=== PATIENT | female | born 1965 | race Caucasian/White ===

== ENCOUNTER 2022-08-01 12:04 | Emergency (ER) | payer MEDICARE, OTHER ==
[~2022-08-01] VITALS: Ht 157.5 cm; Wt 72.6 kg
--- NOTE | 2022-08-01 12:15 | NUR ---
BIB PRIVATE AMBULANCE FROM [facility] C/O BILATERAL EAR "GREEN OOZING" X 3 DAYS. PT DENIES PAIN. DENIES VERTIGO. DENIES HEARING LOSS. PT TRANSFERRED TO BED. CONNECTED TO MONITOR. VITAL SIGNS STABLE. AAOX4. BREATHING EVEN AND NON LABORED. SAFETY PRECAUTIONS IN PLACE. AWAITING MD ORDERS.
[2022-08-01] MEDS ORDERED: AMOX-430 PO (12:39)
--- NOTE | 2022-08-01 13:33 | NUR ---
[facility] ADDRESS: [address] [id number]
--- NOTE | 2022-08-01 13:35 | NUR ---
[facility] NUMBER:
--- NOTE | 2022-08-01 13:37 | NUR ---
CALLED [facility] FOR TRANSPORT ETA 1415 PER TYSHAWN.
--- NOTE | 2022-08-01 13:42 | NUR ---
REPORT GIVEN TO ORLANDO CARDONA Addendum: 08/01/22 at 1342 by XENIA AT [facility] [facility]
--- NOTE | 2022-08-01 14:04 | NUR ---
EMT'S AT BEDSIDE FOR TRANSPORT.
--- NOTE | 2022-08-01 14:04 | NUR ---
[facility] UNIT NUMBER [id number] AT BEDSIDE
--- NOTE | 2022-08-01 14:05 | NUR ---
Patient discharged to [facility] picked up by [facility] in stable condition. Written and verbal after care instructions given. Patient verbalizes understanding of instruction.
[2022-08-01 14:29] VITALS: BP 132/82
[2022-08-18] MEDS ORDERED: ARIP2TAB3 PO (12:04)
[2022-08-18] MEDS ORDERED: ACET325T53 PO (12:04)
[2022-08-18] MEDS ORDERED: DIVA500T2 PO (12:04)
[2022-08-18] MEDS ORDERED: Aspirin Ec PO (12:04)
[2022-08-18] MEDS ORDERED: BUSP5TAB3 PO (12:04)
== END 2022-08-01 14:29 | disposition home or self-care (01) ==
LOC: ER 12:39
DX: H65.93 Unspecified nonsuppurative otitis media, bilateral (principal); Z79.899 Other long term (current) drug therapy; Z79.82 Long term (current) use of aspirin

== ENCOUNTER 2022-08-15 19:59 | Inpatient (IN) | payer MEDICARE, OTHER ==
[~2022-08-15] VITALS: Ht 157.5 cm; Wt 68.5 kg
[~2022-08-15 19:59] MED LIST: AMOX-430 PO
--- NOTE | 2022-08-15 20:36 | NUR ---
BIBRA 60 FOR C/O ALTERED MENTAL STATUS. PT HAD AN INCEIDENT OF ROLLING FROM THE BED EARLIER. PT A/OX2. TOLERATING R/A WELL WITH NO RESP DISTRESS. SAFETY MEASURES IN PLACE. CONNECTED PT TO POX AND MONITOR
--- NOTE | 2022-08-15 21:28 | NUR ---
COVID ANTIGEN AND URINE SWAB COLLECTED AND SENT TO LAB
--- NOTE | 2022-08-15 21:29 | NUR ---
CARDIOTHORACIC SURGEON AT PT'S BEDSIDE
--- NOTE | 2022-08-15 21:46 | NUR ---
PT RETURNED TO ER BED [address]
[2022-08-15 22:05] LABS: BASOPHILS % (AUTO) 0.3 % (0.0-2.0); EOSINOPHILS % (AUTO) 2.3 % (0.0-6.0); HEMATOCRIT 44 % (33-45); HEMOGLOBIN 14.4 g/dL (11.5-14.8); LYMPHOCYTES # (AUTO) 1.7 K/uL (0.8-4.8); LYMPHOCYTES % (AUTO) 14.3 % (20.0-44.0); MEAN CORPUSCULAR HGB CONC 33 g/dl (31.0-36.0); MEAN CORPUSCULAR VOLUME 82 fL (82-100); MONOCYTES # (AUTO) 1.1 K/uL (0.1-1.30); MONOCYTES % (AUTO) 9.1 % (2.0-12.0); NEUTROPHILS # (AUTO) 8.8 K/uL (1.8-8.9); PLATELET COUNT (AUTO) 313 K/uL (150-450); RED BLOOD CELL COUNT(AUTO) 5.32 MIL/uL (4.0-5.2); WHITE BLOOD COUNT (AUTO) 11.8 K/uL (4.3-11.0)
[2022-08-15 22:09] LABS: BILIRUBIN,URINE NEGATIVE (NEGATIVE); COLOR,URINE YELLOW (YELLOW); LEUKOCYTE ESTERASE ,URINE NEGATIVE (NEGATIVE); NITRITE, URINE NEGATIVE (NEGATIVE); PROTEIN,URINE NEGATIVE (NEGATIVE); UGLUCOSE NEGATIVE (NEGATIVE); UROBILINOGEN,URINE 0.2 EU/dL (0.2)
[2022-08-15 22:16] LABS: ALANINE AMINOTRANSFERASE 14 U/L (12-78); ALBUMIN 3.5 g/dL (3.4-5.0); ALCOHOL, BLOOD < 3 mg/dL (0-0); ALKALINE PHOSPHATASE 89 U/L (46-116); ASPARTATE AMINOTRANSFERASE 16 U/L (15-37); BILIRUBIN,DIRECT 0.1 mg/dL (0.0-0.2); BILIRUBIN,TOTAL 0.2 mg/dL (0.2-1.0); CALCIUM, SERUM 9.1 mg/dL (8.5-10.1); CARBON DIOXIDE 24 mmol/L (21-32); CHLORIDE 106 mmol/L (98-107); CREATININE 0.8 mg/dL (0.6-1.3); GLUCOSE 92 mg/dL (74-106); POTASSIUM 3.5 mmol/L (3.5-5.1); SODIUM SERUM 139 mmol/L (136-145); TOTAL PROTEIN, SERUM 7.8 g/dL (6.4-8.2); UREA NITROGEN, BLOOD 11 mg/dL (7-18)
--- NOTE | 2022-08-15 22:27 | NUR ---
NEW ONSET WITNESSED SEIZURE NOTED. DR. MALIK DO AWARE. SEIZURE PRECAUTIONS IN PLACE.
[2022-08-15] MEDS ORDERED: LORAZEPAM INJ 2 MG/ML VIAL ONE ×2 (22:44→22:58)
[2022-08-15] MEDS ORDERED: LORAZEPAM INJ 2 MG/ML VIAL IV ONE ×2 (23:00)
--- NOTE | 2022-08-15 23:17 | NUR ---
REPORT GIVEN TO ASIF Saba RN FOR ALVIN
[2022-08-15 23:45] VITALS: BP 117/58
[2022-08-16] MEDS ORDERED: ACETAMINOPHEN 325 MG TABLET PO PRN
[2022-08-16] MEDS ORDERED: ONDANSETRON HCL/PF 4 MG/2 ML VIAL IVP PRN
[2022-08-16] MEDS ORDERED: LORAZEPAM INJ 2 MG/ML VIAL IV PRN
[2022-08-16] MEDS ORDERED: MORPHINE SULFATE INJ 2 MG/ML DISP.SYRIN IV PRN
[2022-08-16] MEDS ORDERED: hydrALAZINE HCL IV 20 MG VIAL IV PRN
--- NOTE | 2022-08-16 | NUR ---
CLINICAL ALLERGISTSHEETER OPERATOR NOTE RECEIVED REPORT FROM FREIGHT CAR LOADER [place] AND PATIENT WAS BROUGHT TO THE UNIT AT AROUND 2345 VIA STRETCHER, ACCOMPANIED BY 2 ER STAFFS. PER REPORT, PATIENT JUST HAD A SEIZURE IN THE ER DURING OBSERVATION AND ATIVAN WAS GIVEN. UPON ADMISSION IN THE UNIT, PATIENT IS AWAKE, ALERT AND ORIENTED X2 AND SLIGHT LETHARGIC (POST ICTAL STATE). AFEBRILE AND NOT IN ANY FORM OF ACUTE DISTRESS. BREATHING EVEN AND NON LABORED. NO C/O PAIN OR DISCOMFORT. LUNG SOUND CLEAR ON AUSCULTATION. EXPLAINED ADMISSION PROCESS W/C INCLUDES SKIN ASSESSMENT TO WHICH THE PATIENT AGREED. PATIENT WAS NOTED WITH SCAB ON R TEMPORAL AREA AND ON L THIGH, AND RASHES ON R FLANK. WITH IV ACCESS ON R HAND 20G- SL. VITALS TAKEN AND FOLLOWS: BP- 117/58, P- 68, T- 98.4, O2 SAT ON RA 100%, R- 18. BELONGINGS PROPERLY LABELLED AND DOCUMENTED. MEDICATED ORDERED. STARTED IV HYDRATION OF NS AT 75ML/HR. SEIZURE AND ASPIRATION PRECAUTION OBSERVED. PADDED SIDE RAILS FOR PROTECTION. SAFETY MEASURES IN PLACE. KEPT BED IN LOCKED AND IN LOW POSITION. SIDE RAILS UP X2. ADVISED TO USE THE CALL LIGHT WHEN IN NEED OF ASSISTANCE.
[2022-08-16] MEDS: IV NS 0.9% 1,000 ML IV SCH ×2 (00:40→13:20)
[2022-08-16] MEDS: ENOXAPARIN SODIUM 40 MG/0.4 ML DISP.SYRIN SQ SCH ×2 (00:55→21:09)
[2022-08-16 01:28] VITALS: BP 117/58
[2022-08-16 04:00] VITALS: BP 106/56
--- NOTE | 2022-08-16 06:22 | NUR ---
REAL ESTATE ASSESSOR CLOSING NOTE PATIENT IN BED, ASLEEP BUT EASY TO AROUSE AND RESPONDS TO VERBAL AND TACTILE STIMULI. AFEBRILE AND NOT IN ANY FORM OF ACUTE DISTRESS. BREATHING EVEN AND NON LABORED. NO C/O PAIN OR DISCOMFORT THROUGHOUT THE SHIFT. ON TELE MONITORING WITH CURRENT READING OF SR 73. WITH IV ACCESS ON R HAND 20G RUNNING WITH NS AT 75ML/HR. MEDICATED ORDERED. SEIZURE AND ASPIRATION PRECAUTION OBSERVED. SAFETY MEASURES IN PLACE. KEPT BED IN LOCKED AND IN LOW POSITION. SIDE RAILS UP X2. ADVISED TO USE THE CALL LIGHT WHEN IN NEED OF ASSISTANCE. ALL NURSING NEEDS ATTENDED. ENDORSED TO INCOMING SHIFT FOR CONTINUITY OF CARE.
[2022-08-16 06:41] LABS: BILIRUBIN,TOTAL 0.3 mg/dL (0.2-1.0); CALCIUM, SERUM 8.5 mg/dL (8.5-10.1); CREATININE 0.7 mg/dL (0.6-1.3); MAGNESIUM 2.2 mg/dL (1.8-2.4); PHOSPHORUS 3.3 mg/dL (2.5-4.9); POTASSIUM 3.6 mmol/L (3.5-5.1); TOTAL PROTEIN, SERUM 7.1 g/dL (6.4-8.2)
--- NOTE | 2022-08-16 07:20 | NUR ---
DEAN OF WOMEN NOTES PATIENT IN BED ALERT ORIENTED X 4, NO ACUTE DISTRESS NOTED, BREATHING UNLABORED. NO SOB NOTED. IV ACCESS PATENT AND INTACT. SAFETY MEASURES IN PLACE. SEIZURE PRECAUTION IN PLACE. CALL LIGHT WITHIN REACH. WILL CONTINUE TO MONITOR ACCORDINGLY
[2022-08-16 07:39] LABS: BASOPHILS % (AUTO) 0.4 % (0.0-2.0); EOSINOPHILS % (AUTO) 2.1 % (0.0-6.0); HEMATOCRIT 41 % (33-45); HEMOGLOBIN 13.2 g/dL (11.5-14.8); LYMPHOCYTES # (AUTO) 2.1 K/uL (0.8-4.8); MEAN CORPUSCULAR HGB CONC 32 g/dl (31.0-36.0); MEAN CORPUSCULAR VOLUME 84 fL (82-100); MONOCYTES % (AUTO) 9.7 % (2.0-12.0); NEUTROPHILS % (AUTO) 67.8 % (43.0-81.0); PLATELET COUNT (AUTO) 301 K/uL (150-450); RED BLOOD CELL COUNT(AUTO) 4.88 MIL/uL (4.0-5.2); WHITE BLOOD COUNT (AUTO) 10.3 K/uL (4.3-11.0)
[2022-08-16 08:00] VITALS: BP 115/63
[2022-08-16] MEDS ORDERED: AMLO-212 PO (08:02)
[2022-08-16] MEDS ORDERED: BUSP5TAB3 PO (08:02)
[2022-08-16] MEDS ORDERED: ARIP10TA57 PO (08:02)
[2022-08-16] MEDS ORDERED: ASPI-1420 PO (08:02)
[2022-08-16] MEDS: LEVETIRACETAM (500MG) 500 MG in IV NS 0.9% 100 ML IV SCH ×2 (08:55→21:07)
--- NOTE | 2022-08-16 09:14 | NUR ---
HEALTH SYSTEMS ANALYST NOTES CLARIFIED DIET ORDER WITH MANAGER FRAUD ISAEL ABBASI , PATIENT ALERT ORIENTED X3, ABLE TO FOLLOW COMMAND , NOT IN DISTRESS, ABLE TO SWALLOW WITH NO DIFFICULTY AND COUGHING, WITH NEW ORDER FOR CARDIAC CHOPPED DIET, MENTION TO MANAGER FRAUD ALSO REGARDING HER HOME MEDICATION NEEDS TO BE REVIEWED, ORDER CLARIFIED AND READ BACK WITH RANULFO ABBASI, NOTED AND CARRIED OUT.
[2022-08-16 12:00] VITALS: BP 102/75
[2022-08-16 16:00] VITALS: BP 113/49
--- NOTE | 2022-08-16 16:34 | NUR ---
INFORMATION ASSOC NOTES EEG DONE AT BESIDE, PATIENT TOLERATED WELL
[2022-08-16] MEDS: AMLODIPINE BESYLATE 5 MG TABLET PO SCH (17:00)
--- NOTE | 2022-08-16 17:30 | NUR ---
INFORMATICIST NOTES HELD AMLODIPINE DUE TO BLOOD PRESSURE 104/67
--- NOTE | 2022-08-16 18:53 | NUR ---
DEBURRING AND TOOLING MACHINE OPERATOR NOTES PATIENT IN BED ALERT ORIENTED X 4, NO ACUTE DISTRESS NOTED, BREATHING UNLABORED. NO SOB NOTED. IV ACCESS PATENT AND INTACT. NEEDS ATTENDED AND ANTICIPATED. SAFETY MEASURES IN PLACE. SEIZURE PRECAUTION IN PLACE. CALL LIGHT WITHIN REACH. WILL ENDORSE TO NIGHT NURSE FOR CONTINUITY OF CARE
--- NOTE | 2022-08-16 19:05 | NUR ---
HOME VISITOR OPENING NOTE PT IS SLEEPING IN BED, EASILY BEING AROUSED. SHE IS ALERT AND ORIENTED, AO X 3-4 BUT FORGETFUL SHE IS ON RA, TOLERATED WELL. NO S/S OF DISTRESS OR SOB. IV ACCESS IS AT HER R HAND, #20G, RUNNING NS @ 75 ML/HR. IV SITE IS PATENT AND INTACT. PT IS ON EXTERNAL CARE TECHNICIAN, ON THE MONITOR, HER HEART RHYTHM IS SB WITH HEART RATE OF 50S. SAFETY MEASURES ARE IN PLACE: PT IS ON SEIZURE PRECAUTION. BED IS PADDED, IN LOWEST AND LOCKED POSITION; SIDE RAILS UP X 3; BED ALARM IS SET. CALL LIGHT AND TABLE ARE WITHIN EASY REACH. WILL CONTINUE MONITORING THE PATIENT AND PROVIDE THE CARE PT NEEDS.
[2022-08-17] MEDS: IV NS 0.9% 1,000 ML IV SCH ×2 (02:39→15:25)
--- NOTE | 2022-08-17 03:54 | NUR ---
RADIOLOGIC TECHNICIAN NOTE PT'S HEART RATE IS RUNNING AT 50S AND UPPER 40S. CHECKED THE PATIENT, AND TOOK HER VITAL SIGNS. BP IS 147/71; HR IS 52, O2 SAT IS 100% WITH RA. PT IS ASYMPTOMATIC.
[2022-08-17 06:34] LABS: BASOPHILS % (AUTO) 0.5 % (0.0-2.0); EOSINOPHILS % (AUTO) 3.1 % (0.0-6.0); HEMATOCRIT 40 % (33-45); HEMOGLOBIN 12.8 g/dL (11.5-14.8); LYMPHOCYTES # (AUTO) 2.5 K/uL (0.8-4.8); LYMPHOCYTES % (AUTO) 27.2 % (20.0-44.0); MEAN CORPUSCULAR HGB CONC 32 g/dl (31.0-36.0); MEAN CORPUSCULAR VOLUME 84 fL (82-100); MONOCYTES % (AUTO) 10.9 % (2.0-12.0); NEUTROPHILS # (AUTO) 5.3 K/uL (1.8-8.9); NEUTROPHILS % (AUTO) 58.3 % (43.0-81.0); PLATELET COUNT (AUTO) 270 K/uL (150-450); RED BLOOD CELL COUNT(AUTO) 4.74 MIL/uL (4.0-5.2); WHITE BLOOD COUNT (AUTO) 9.1 K/uL (4.3-11.0)
--- NOTE | 2022-08-17 06:49 | NUR ---
ELEMENTARY SCIENCE TEACHER CLOSING NOTE PT IS SLEEPING IN BED, EASILY BEING AROUSED. SHE IS ALERT AND ORIENTED, AO X 3, BUT FORGETFUL. SHE IS ON RA, TOLERATED WELL. NO S/S OF DISTRESS OR SOB. IV ACCESS IS AT HER R FA, #20G, RUNNING NS @ 75 ML/HR. IV SITE IS PATENT AND INTACT. PT IS ON EXTERNAL MASON TENDER RESTORATION LABOR, ON THE MONITOR, HER HEART RHYTHM IS SB WITH HEART RATE OF 50S. NO SEIZURES DURING THE SHIFT. SAFETY MEASURES ARE IN PLACE: PT IS ON SEIZURE PRECAUTION. BED IS PADDED, IN LOWEST AND LOCKED POSITION; SIDE RAILS UP X 3; BED ALARM IS SET. CALL LIGHT AND TABLE ARE WITHIN EASY REACH. WILL ENDORSE NEXT SHIFT NURSE FOR CONTINUING PT CARE.
[2022-08-17 07:04] LABS: CALCIUM, SERUM 8.3 mg/dL (8.5-10.1); CREATININE 0.7 mg/dL (0.6-1.3)
--- NOTE | 2022-08-17 07:30 | NUR ---
COMMERCIAL LITIGATION ATTORNEY NOTES PT IN BED, ASLEEP, EASY TO AROUSE, ALERT AND ORIENTED, CALM AND COOPERATIVE AT THIS TIME, NO COMPLAINT OF PAIN OR ANY DISCOMFORT, CALL LIGHT WITHIN REACH, KEPT COMFORTABLE IN BED.
[2022-08-17 08:00] VITALS: BP 104/59
[2022-08-17] MEDS: AMLODIPINE BESYLATE 5 MG TABLET PO SCH ×2 (08:24→16:57)
[2022-08-17] MEDS: ASPIRIN EC 81 MG TABLET.DR PO SCH (08:29)
[2022-08-17] MEDS: LEVETIRACETAM (500MG) 500 MG in IV NS 0.9% 100 ML IV SCH (08:29)
[2022-08-17] MEDS: busPIRone 5 MG TABLET PO SCH (08:30)
[2022-08-17] MEDS ORDERED: VALPROATE 1,000 MG in IV D5W 100 ML IV SCH ×2 (09:00→15:00)
[2022-08-17 12:00] VITALS: BP 108/62
[2022-08-17] MEDS: ARIPIPRAZOLE 2 MG TABLET PO SCH (12:14)
[2022-08-17 16:00] VITALS: BP 112/61
--- NOTE | 2022-08-17 18:08 | NUR ---
RN MS NOTES PT IN BED, AWAKE, ALERT AND ORIENTED, WATCHING TV, ATE DINNER, SEEN BY DR. ABBASI TODAY, PLAN OF CARE DISCUSSED WITH PT, VERBALIZED UNDERSTANDING, IV FLUIDS INFUSING WELL, CALL LIGHT KEPT WITHIN REACH.
--- NOTE | 2022-08-17 19:40 | NUR ---
MS RN OPENING NOTES RECEIVED PATIENT IN BED SLEEPING, EASILY AWAKEN WHEN CALLED BY NAME. A/OX3-4 ABLE TO MAKE NEEDS KNOWN WITH EPISODES OF FORGETFULNESS. PATIENT WITH IV SITE ON RIGHT FOREARM G#20 INFUSING NS 0.9% @ 75ML/HR. ON ROOM AIR TOLERATING WELL. NO SOB, NOT IN DISTRESS NOTED. COMFORTABLE AND NO PAIN AT THIS TIME PER PATIENT. SAFETY MEASURES IN PLACED; BED LOCKED AND IN LOWEST POSITION; CALL LIGHT AND BEDSIDE TABLE WITHIN PATIENTS REACH.
[2022-08-17 20:00] VITALS: BP 113/51
[2022-08-17] MEDS: LEVETIRACETAM (250 MG) 250 MG TABLET PO SCH (21:16)
[2022-08-17] MEDS: ENOXAPARIN SODIUM 40 MG/0.4 ML DISP.SYRIN SQ SCH (21:18)
[2022-08-17] MEDS: VALPROATE 500 MG in IV D5W 100 ML IV SCH (21:21)
[2022-08-18] MEDS: IV NS 0.9% 1,000 ML IV SCH (05:28)
--- NOTE | 2022-08-18 07:06 | NUR ---
RN CLOSING NOTES PATIENT IN BED SLEEPING, EASILY AWAKEN WHEN CALLED BY NAME. A/OX3-4 ABLE TO MAKE NEEDS KNOWN WITH EPISODES OF FORGETFULNESS. PATIENT WITH IV SITE ON RIGHT FOREARM G#20 INFUSING NS 0.9% @ 75ML/HR. ON ROOM AIR TOLERATING WELL. NO SOB, NOT IN DISTRESS NOTED. COMFORTABLE AND NO PAIN AT THIS TIME PER PATIENT. ALL DUE MEDICATIONS ARE GIVEN. ALL NEEDS ARE MET. SAFETY MEASURES IN PLACED; BED LOCKED AND IN LOWEST POSITION; CALL LIGHT AND BEDSIDE TABLE WITHIN PATIENTS REACH.WILL ENDORSE TO NEXT SHIFT FOR CONTINUITY OF CARE.
--- NOTE | 2022-08-18 07:15 | NUR ---
RN OPENING NOTE RECEIVED PATIENT IN BED SLEEPING, EASILY AWAKEN WHEN CALLED BY NAME. A/OX3-4 ABLE TO MAKE NEEDS KNOWN. IV ACCESS RIGHT FOREARM G#20 INFUSING NS 0.9% @ 75ML/HR. ON ROOM AIR TOLERATING WELL. NO SOB, NO DISTRESS NOTED, NO C/O PAIN. SAFETY MEASURES IN PLACED; BED LOCKED AND IN LOWEST POSITION; CALL LIGHT AND BEDSIDE TABLE WITHIN PATIENTS REACH.
[2022-08-18 08:00] VITALS: BP 124/74
[2022-08-18] MEDS: ARIPIPRAZOLE 2 MG TABLET PO SCH (09:09)
[2022-08-18] MEDS: LEVETIRACETAM (250 MG) 250 MG TABLET PO SCH (09:10)
[2022-08-18] MEDS: busPIRone 5 MG TABLET PO SCH (09:10)
[2022-08-18 09:11] VITALS: BP 124/74
[2022-08-18] MEDS: AMLODIPINE BESYLATE 5 MG TABLET PO SCH (09:11)
[2022-08-18] MEDS: ASPIRIN EC 81 MG TABLET.DR PO SCH (09:11)
[2022-08-18] MEDS: VALPROATE 500 MG in IV D5W 100 ML IV SCH (09:13)
[2022-08-18] MEDS ORDERED: Aspirin Ec PO (12:04)
[2022-08-18] MEDS ORDERED: ACET325T53 PO (12:04)
[2022-08-18] MEDS ORDERED: ARIP2TAB3 PO (12:04)
[2022-08-18] MEDS ORDERED: DIVA500T2 PO (12:04)
[2022-08-18] MEDS ORDERED: BUSP5TAB3 PO (12:04)
--- NOTE | 2022-08-18 13:54 | NUR ---
PATIENT D/C TO ASSISTED [facility]IV[facility]AC[facility] AT 1400. CONDITION STABLE, AUDITING CLERK VIA GURNEY BY PARAMEDICS, D/C INSTRUCTION PROVIDED, VERBALIZED UNDERSTANDING.
== END 2022-08-18 14:30 | DRG 100 ==
LOC: ER 20:13 → TELE 23:17 → MED 08-17 10:22
PROVIDERS: ADMIT Internal Medicine; ATTEND Nurse Practitioner Acute Care
DX: R56.9 Unspecified convulsions (principal); G92.8 Other toxic encephalopathy; E44.1 Mild protein-calorie malnutrition; I10 Essential (primary) hypertension; Z20.822 Contact with and (suspected) exposure to COVID-19; W06.XXXA Fall from bed, initial encounter; Y92.092 Bedroom in other non-institutional residence as the place of occurrence of the external cause; S09.90XA Unspecified injury of head, initial encounter; F12.90 Cannabis use, unspecified, uncomplicated; Z79.82 Long term (current) use of aspirin; Z79.899 Other long term (current) drug therapy; F20.9 Schizophrenia, unspecified; F31.9 Bipolar disorder, unspecified; D72.829 Elevated white blood cell count, unspecified; E88.09 Other disorders of plasma-protein metabolism, not elsewhere classified; F17.210 Nicotine dependence, cigarettes, uncomplicated
CPT/HCPCS: 36415; 70450-TC; 71045-TC; 80048-TC; 80053-TC; 80076-TC; 82962-TC; 83605-TC; 83735-TC; 84100-TC; 84484-TC; 85025-TC; 85730-TC; 87081-TC; 95819-TC; 97112-TC; 97116-TC; 97530-TC; A4223; C9803; G0378; G0480; J1650; J1953; J2060; J3490; J7030; J7060

== ENCOUNTER 2022-09-27 04:22 | Emergency (ER) | payer MEDICARE, OTHER ==
[~2022-09-27] VITALS: Ht 157.5 cm; Wt 68.9 kg
[~2022-09-27 04:22] MED LIST changes: +ACET325T53 PO; +AMLO-212 PO; -AMOX-430 PO; +ARIP2TAB3 PO; +Aspirin Ec PO; +BUSP5TAB3 PO; +DIVA500T2 PO
--- NOTE | 2022-09-27 04:49 | NUR ---
LAC #20G S/L BLOOD COLLECTED AND SENT TO LAB
[2022-09-27] MEDS ORDERED: DIVALPROEX SODIUM 500 MG TABLET.DR PO ONE ×2 (04:53→05:00)
[2022-09-27] MEDS ORDERED: DEXTROSE 50%-WATER 50 ML DISP.SYRIN IVP ONE (05:00)
--- NOTE | 2022-09-27 05:00 | NUR ---
PT IS HIGH FUNCTIONING AUTISTIC. ENCOURAGE PT TO GIVE URINE SAMPLE BUT CANNOT PEE AT THE MOMENT. ASKED PATIENT IF I CAN DO AN IN AND OUT CATHETERIZATION, PT STRONGLY REFUSED. MADE AWARE
--- NOTE | 2022-09-27 05:02 | NUR ---
D50%W 50 ML, GAVE 25 ML, END TIME 0520H
[2022-09-27 05:04] LABS: BASOPHILS # (AUTO) 0.1 K/uL (0.0-0.2); BASOPHILS % (AUTO) 0.7 % (0.0-2.0); EOSINOPHILS % (AUTO) 4.6 % (0.0-6.0); HEMATOCRIT 43 % (33-45); HEMOGLOBIN 14.2 g/dL (11.5-14.8); LYMPHOCYTES # (AUTO) 2.2 K/uL (0.8-4.8); LYMPHOCYTES % (AUTO) 30.2 % (20.0-44.0); MEAN CORPUSCULAR HGB CONC 33 g/dl (31.0-36.0); MEAN CORPUSCULAR VOLUME 84 fL (82-100); MONOCYTES # (AUTO) 0.6 K/uL (0.1-1.30); MONOCYTES % (AUTO) 8.7 % (2.0-12.0); NEUTROPHILS % (AUTO) 55.8 % (43.0-81.0); PLATELET COUNT (AUTO) 244 K/uL (150-450); RED BLOOD CELL COUNT(AUTO) 5.16 MIL/uL (4.0-5.2); WHITE BLOOD COUNT (AUTO) 7.2 K/uL (4.3-11.0)
[2022-09-27] MEDS ORDERED: DEXTROSE 50%-WATER 50 ML DISP.SYRIN ONE (05:10)
[2022-09-27 05:22] LABS: ALANINE AMINOTRANSFERASE 19 U/L (12-78); ALBUMIN 3.5 g/dL (3.4-5.0); ALCOHOL, BLOOD < 3 mg/dL (0-0); ALKALINE PHOSPHATASE 86 U/L (46-116); ASPARTATE AMINOTRANSFERASE 16 U/L (15-37); BILIRUBIN,TOTAL 0.2 mg/dL (0.2-1.0); CALCIUM, SERUM 9.1 mg/dL (8.5-10.1); CARBON DIOXIDE 20 mmol/L (21-32); CHLORIDE 107 mmol/L (98-107); GLUCOSE 76 mg/dL (74-106); POTASSIUM 4.1 mmol/L (3.5-5.1); SODIUM SERUM 140 mmol/L (136-145); TOTAL PROTEIN, SERUM 7.5 g/dL (6.4-8.2); UREA NITROGEN, BLOOD 18 mg/dL (7-18)
--- NOTE | 2022-09-27 05:42 | NUR ---
BEDPAN PLACED UNDERNEATH PT. ENCOURAGE TO PEE TO PRODUCE URINE.
--- NOTE | 2022-09-27 06:27 | NUR ---
URINE SPECIMEN SENT TO LAB
--- NOTE | 2022-09-27 07:14 | NUR ---
REPORT GIVEN TO DULCE SHERMAN
[2022-09-27 07:19] LABS: BILIRUBIN,URINE NEGATIVE (NEGATIVE); COLOR,URINE YELLOW (YELLOW); LEUKOCYTE ESTERASE ,URINE NEGATIVE (NEGATIVE); NITRITE, URINE NEGATIVE (NEGATIVE); PH,URINE 5.5 (5.0-8.0); PROTEIN,URINE NEGATIVE (NEGATIVE); UGLUCOSE NEGATIVE (NEGATIVE); UROBILINOGEN,URINE 0.2 EU/dL (0.2)
--- NOTE | 2022-09-27 08:23 | NUR ---
CALLED [facility] FOR TRANSPORT ETA 15 MINS.
--- NOTE | 2022-09-27 08:30 | NUR ---
Patient discharged to home in stable condition. Written and verbal after care instructions given. Patient verbalizes understanding of instruction.
[2022-09-27 09:54] VITALS: BP 108/60
== END 2022-09-27 09:55 ==
LOC: ER 04:27
DX: G40.909 Epilepsy, unspecified, not intractable, without status epilepticus (principal); E16.2 Hypoglycemia, unspecified; I10 Essential (primary) hypertension; F32.A Depression, unspecified; F20.9 Schizophrenia, unspecified; F41.9 Anxiety disorder, unspecified; F17.200 Nicotine dependence, unspecified, uncomplicated; Z79.899 Other long term (current) drug therapy
CPT/HCPCS: 99285; 96365; 93005; 71045; 85025; 80048; 80076; 81003; 36415; 85730; 82962 ×2; 80320; 80307; A4223; G0480

== ENCOUNTER 2022-11-06 10:07 | Emergency (ER) | payer MEDICARE, OTHER ==
[~2022-11-06] VITALS: Ht 165.1 cm; Wt 57.2 kg
--- NOTE | 2022-11-06 10:10 | NUR ---
TO ER BED 13. BIB RA 60 FROM SNF AFTER HAVING A SEIZURE EPISODE. PT HAS A HEMATOMA ON THE BACK OF HER HEAD NO ORAL TRAUMA NOTED. BLOOD GLUCOSE 136 PER EMS, PT IS NOT ON BLOOD THINNERS. ATTACHED TO MONITOR. WARM BLNAKET PROVIDED FOR COMFORT. FIOR SHAY ORDERS.
--- NOTE | 2022-11-06 10:24 | NUR ---
IV ESTABLISHED R WRIST 20G. LABD DRAWN AND SENT.
[2022-11-06] MEDS ORDERED: IV NS 0.9% 1,000 ML BAG IV ONE (10:30)
[2022-11-06 10:45] LABS: CALCIUM, SERUM 9.3 mg/dL (8.5-10.1); CARBON DIOXIDE 22 mmol/L (21-32); CHLORIDE 106 mmol/L (98-107); GLUCOSE 110 mg/dL (74-106); POTASSIUM 4.1 mmol/L (3.5-5.1); SODIUM SERUM 140 mmol/L (136-145); UREA NITROGEN, BLOOD 15 mg/dL (7-18)
[2022-11-06 10:51] LABS: ALANINE AMINOTRANSFERASE 17 U/L (12-78); ALBUMIN 3.7 g/dL (3.4-5.0); ALCOHOL, BLOOD < 3 mg/dL (0-0); ALKALINE PHOSPHATASE 107 U/L (46-116); ASPARTATE AMINOTRANSFERASE 18 U/L (15-37); BILIRUBIN,DIRECT 0.1 mg/dL (0.0-0.2); BILIRUBIN,TOTAL 0.2 mg/dL (0.2-1.0); TOTAL PROTEIN, SERUM 8.2 g/dL (6.4-8.2)
--- NOTE | 2022-11-06 10:52 | NUR ---
PT REFUSED HEAD CT AND CHEST X-RAY
--- NOTE | 2022-11-06 10:54 | NUR ---
PT TAKEN TO CT VIA SMITH
[2022-11-06] MEDS ORDERED: NYST60PO TP (11:10)
[2022-11-06] MEDS ORDERED: BUSP10TA35 PO (11:10)
[2022-11-06] MEDS ORDERED: VALS80TA2 PO (11:10)
[2022-11-06] MEDS ORDERED: ARIP10TA9 PO (11:10)
[2022-11-06 11:34] LABS: BASOPHILS % (AUTO) 0.5 % (0.0-2.0); EOSINOPHILS % (AUTO) 0.8 % (0.0-6.0); HEMATOCRIT 47 % (33-45); HEMOGLOBIN 15.6 g/dL (11.5-14.8); LYMPHOCYTES # (AUTO) 1.8 K/uL (0.8-4.8); LYMPHOCYTES % (AUTO) 19.5 % (20.0-44.0); MEAN CORPUSCULAR HGB CONC 33 g/dl (31.0-36.0); MEAN CORPUSCULAR VOLUME 85 fL (82-100); MONOCYTES # (AUTO) 0.5 K/uL (0.1-1.30); MONOCYTES % (AUTO) 5.8 % (2.0-12.0); NEUTROPHILS # (AUTO) 6.9 K/uL (1.8-8.9); NEUTROPHILS % (AUTO) 73.4 % (43.0-81.0); PLATELET COUNT (AUTO) 292 K/uL (150-450); RED BLOOD CELL COUNT(AUTO) 5.55 MIL/uL (4.0-5.2); WHITE BLOOD COUNT (AUTO) 9.4 K/uL (4.3-11.0)
--- NOTE | 2022-11-06 12:42 | NUR ---
URINE COLLECTED AND SENT TO LAB
[2022-11-06] MEDS ORDERED: LEVETIRACETAM (500MG) 1,000 MG in IV NS 0.9% 100 ML IV SCH (13:00)
[2022-11-06 13:32] LABS: BILIRUBIN,URINE NEGATIVE (NEGATIVE); COLOR,URINE YELLOW (YELLOW); LEUKOCYTE ESTERASE ,URINE NEGATIVE (NEGATIVE); NITRITE, URINE NEGATIVE (NEGATIVE); PROTEIN,URINE NEGATIVE (NEGATIVE); UGLUCOSE NEGATIVE (NEGATIVE); UROBILINOGEN,URINE 0.2 EU/dL (0.2)
[2022-11-06] MEDS ORDERED: LEVE500T9 PO (14:58)
--- NOTE | 2022-11-06 15:08 | NUR ---
SET UP TRANSPORTATION, [facility] WILL BE HERE WITHIN 20-30 MINUTES
--- NOTE | 2022-11-06 15:12 | NUR ---
REPORT GIVEN TO DMITRY SEVILLA [facility] FOR [facility]
[2022-11-06 15:54] VITALS: BP 129/78
--- NOTE | 2022-11-06 15:54 | NUR ---
pateint picked up by private ambulance going back to snf in no distress. IV removed. Catheter intact and site benign. Pressure and 4x4 applied to site. No bleeding noted.
== END 2022-11-06 15:54 ==
LOC: ER 10:10
DX: G40.909 Epilepsy, unspecified, not intractable, without status epilepticus (principal); I10 Essential (primary) hypertension; F32.A Depression, unspecified; F20.9 Schizophrenia, unspecified; F41.9 Anxiety disorder, unspecified; F17.200 Nicotine dependence, unspecified, uncomplicated; Z79.899 Other long term (current) drug therapy
CPT/HCPCS: 99285; 96365; 96361; 93005; 71045; 70450; 85025; 80048; 80076; 81003; 36415; 82962; 80320; 80307; J7030 ×2; J1953; G0480

== ENCOUNTER 2024-02-09 22:33 | Inpatient (IN) | payer MEDICARE, OTHER ==
[~2024-02-09] VITALS: Ht 162.6 cm; Wt 58.1 kg
[~2024-02-09 22:33] MED LIST changes: -ACET325T53 PO; +ARIP10TA9 PO; -ARIP2TAB3 PO; -Aspirin Ec PO; +BUSP10TA35 PO; -BUSP5TAB3 PO; -DIVA500T2 PO; +LEVE500T9 PO; +NYST60PO TP; +VALS80TA2 PO
--- NOTE | 2024-02-09 23:27 | NUR ---
urine sent to lab
--- NOTE | 2024-02-09 23:28 | NUR ---
[id number] FROM [facility] CC FOUND PASSED OUT WITH PINPOINT PUPILS IN THE BACK OF THE FACILTY RR OF 6 ON ARRIVAL EMS GIVEN 4NARCAN IM AND 2 IV OCCUPATIONAL THERAPY ASST
[2024-02-10] VITALS (21 sets, daily range): BP systolic 116–167; BP diastolic 65–89; TEMP 98; O2SAT 91–95
[2024-02-10 00:16] LABS: APPEARANCE,URINE CLEAR (CLEAR); BILIRUBIN,URINE NEGATIVE (NEGATIVE); BLOOD, URINE NEGATIVE Ery/uL (NEGATIVE); COLOR,URINE YELLOW (YELLOW); KETONES,URINE NEGATIVE (NEGATIVE); LEUKOCYTE ESTERASE ,URINE NEGATIVE (NEGATIVE); NITRITE, URINE NEGATIVE (NEGATIVE); PH,URINE 5.5 (5.0-8.0); PROTEIN,URINE NEGATIVE (NEGATIVE); UGLUCOSE 3+ mg/dL (NEGATIVE); UROBILINOGEN,URINE 0.2 EU/dL (0.2)
[2024-02-10 00:18] LABS: ADD URINE CULTURE NO; BACTERIA,URINE Rare /HPF (None Seen); RBC,URINE 0-2 /HPF (0-2); SQUAMOUS EPITHELIAL CELL,UR Rare /HPF (None Seen); WBC,URINE 0-2 /HPF (0-3)
[2024-02-10 00:23] LABS: BASOPHILS # (AUTO) 0.1 K/uL (0.0-0.2); BASOPHILS % (AUTO) 0.3 % (0.0-2.0); EOSINOPHILS % (AUTO) 0.2 % (0.0-6.0); HEMATOCRIT 45 % (33-45); LYMPHOCYTES % (AUTO) 4.5 % (20.0-44.0); MEAN CORPUSCULAR HEMOGLOBIN 30 PG (26.0-33.0); MEAN CORPUSCULAR HGB CONC 33 g/dl (31.0-36.0); MEAN CORPUSCULAR VOLUME 90 fL (82-100); MONOCYTES # (AUTO) 1.3 K/uL (0.1-1.30); MONOCYTES % (AUTO) 6.1 % (2.0-12.0); NEUTROPHILS # (AUTO) 19.4 K/uL (1.8-8.9); NEUTROPHILS % (AUTO) 88.9 % (43.0-81.0); PLATELET COUNT (AUTO) 250 K/uL (150-450); RED BLOOD CELL COUNT(AUTO) 5.05 MIL/uL (4.0-5.2); RED CELL DISTRIBUTION WIDTH 14.6 % (11.5-15.0); WHITE BLOOD COUNT (AUTO) 21.8 K/uL (4.3-11.0)
[2024-02-10 00:29] LABS: AMPHETAMINE, URINE NEGATIVE (NEGATIVE); BARBITURATE, URINE NEGATIVE (NEGATIVE); BENZODIAZEPINE, URINE NEGATIVE (NEGATIVE); CANNABINOID, URINE POSITIVE (NEGATIVE); COCCAINE, URINE NEGATIVE (NEGATIVE); OPIATE, URINE NEGATIVE (NEGATIVE); PHENCYCLIDINE SCREEN,URINE NEGATIVE (NEGATIVE)
[2024-02-10 00:50] LABS: ALANINE AMINOTRANSFERASE 34 U/L (12-78); ALBUMIN 3.8 g/dL (3.4-5.0); ALKALINE PHOSPHATASE 93 U/L (46-116); ASPARTATE AMINOTRANSFERASE 34 U/L (15-37); BILIRUBIN,TOTAL 0.2 mg/dL (0.2-1.0); CALCIUM, SERUM 9.2 mg/dL (8.5-10.1); CARBON DIOXIDE 24 mmol/L (21-32); CHLORIDE 108 mmol/L (98-107); CREATININE 1.1 mg/dL (0.6-1.3); GLUCOSE 248 mg/dL (74-106); NT-PRO BNP 213 pg/mL (0-125); POTASSIUM 3.8 mmol/L (3.5-5.1); SALICYLATE 3.7 mg/dL (2.8-20.0); SODIUM SERUM 146 mmol/L (136-145); TOTAL PROTEIN, SERUM 7.8 g/dL (6.4-8.2); UREA NITROGEN, BLOOD 20 mg/dL (7-18)
[2024-02-10 00:57] LABS: ACETAMINOPHEN 0 ug/ml (10-30); ALCOHOL, BLOOD < 3 mg/dL (0-10)
--- NOTE | 2024-02-10 01:15 | NUR ---
Xray at bedside
[2024-02-10 01:35] LABS: LACTIC ACID 4.8 mmol/L (0.4-2.0)
--- NOTE | 2024-02-10 01:35 | NUR ---
LACTIC ACID 4.8
[2024-02-10] MEDS ORDERED: PIPERACI/TAZO 3.375GM/D5W 50ML PB IV ONE (02:03)
[2024-02-10] MEDS: IV NS 0.9% 1,000 ML IV ONE ×2 (02:14→02:25)
[2024-02-10] MEDS: PIPERACILLIN /TAZOBACTAM 3.375 G in IV D5W 50 ML IV ONE (02:24)
[2024-02-10 03:45] LABS: LACTIC ACID REFLEX 1.2 mmol/L (0.4-1.9)
[2024-02-10] MEDS ORDERED: NALOXONE PREFILLED SYRINGE 2 MG/2 ML SYRINGE ONE (03:50)
[2024-02-10] MEDS: NALOXONE HCL 0.4 MG/ML AMPUL IV ONE ×2 (03:54→14:07)
[2024-02-10] MEDS ORDERED: Z GUARD REMEDY 4 OZ OINT TP PRN (06:00)
[2024-02-10] MEDS ORDERED: ONDANSETRON HCL/PF 4 MG/2 ML VIAL IVP PRN (06:00)
[2024-02-10 06:55] LABS: BASOPHILS % (AUTO) 0.1 % (0.0-2.0); HEMATOCRIT 43 % (33-45); MEAN CORPUSCULAR HEMOGLOBIN 29 PG (26.0-33.0); MEAN CORPUSCULAR HGB CONC 33 g/dl (31.0-36.0); MEAN CORPUSCULAR VOLUME 90 fL (82-100); MONOCYTES # (AUTO) 1.6 K/uL (0.1-1.30); MONOCYTES % (AUTO) 7.9 % (2.0-12.0); NEUTROPHILS # (AUTO) 17.4 K/uL (1.8-8.9); PLATELET COUNT (AUTO) 253 K/uL (150-450); RED BLOOD CELL COUNT(AUTO) 4.76 MIL/uL (4.0-5.2); RED CELL DISTRIBUTION WIDTH 14.6 % (11.5-15.0)
[2024-02-10 07:27] LABS: ALBUMIN 3.8 g/dL (3.4-5.0); BILIRUBIN,DIRECT 0.1 mg/dL (0.0-0.2); CALCIUM, SERUM 9.2 mg/dL (8.5-10.1); CREATININE 0.8 mg/dL (0.6-1.3); PHOSPHORUS 4.2 mg/dL (2.5-4.9); POTASSIUM 3.9 mmol/L (3.5-5.1); TOTAL PROTEIN, SERUM 7.6 g/dL (6.4-8.2)
--- NOTE | 2024-02-10 07:55 | NUR ---
REPORT GIVEN TO ORLANDO POLLACK ALVIN
--- NOTE | 2024-02-10 07:55 | NUR ---
Jerri jenkins in [facility] - 02/10/24 at 0838 by EUGENIA gerardo grove
[2024-02-10 08:41] LABS: MAGNESIUM 2.1 mg/dL (1.8-2.4)
[2024-02-10 08:55] LABS: BILIRUBIN,TOTAL 0.3 mg/dL (0.2-1.0)
[2024-02-10] MEDS ORDERED: LEVE500T20 PO (09:06)
[2024-02-10] MEDS ORDERED: ASPI-1169 PO (09:06)
[2024-02-10] MEDS: PIPERACILLIN /TAZOBACTAM 3.375 G in IV D5W 100 ML IV SCH (09:50)
--- NOTE | 2024-02-10 14:30 | NUR ---
TRANSFER OF CARE NOTES Patient was brought to ICU for continuity of care, transported via bed. On 02 at 15LPM via non rebreather. Tolerating well with O2 sat is 100%. Will titrate as tolerated. Bedside report given to DULCE Chaidez. Narcan 0.8 was given prior to transfer. Patient became more alert and oriented and verbally responsive. IV ABX given as ordered in AM. No ASE noted. Vital signs taken and recorded. RT did ABG with abnormal CO2 and PH of 7.4. Patient in stable condition at this time. ICU nurse to continue monitoring the patient frequently or as needed.
--- NOTE | 2024-02-10 14:30 | NUR ---
ESTIMATING MANAGER RECEIVED PT BY BED FROM TELE. REPORT RECEIVED FROM VITALIY. PT WAS ADMITTED FOR ACCIDENTAL FENTANYL OD. PT WAS UNRESPONSIVE ON THE FLOOR AND WAS GIVEN NARCAN IV. PT NOW AWAKE ET VERBAL, FOLLOWING COMMANDS. WILL MONITOR FOR CHANGES IN LEVEL OF CONSCIOUSNESS.
[2024-02-10 14:37] LABS: ABG BASE EXCESS -3.3 mmol/L (-2.0-3.0); ABG OXYGEN SATURATION 97.4 % (94.0-98.0); ABG PCO2 69.5 mmHg (32.0-45.0); ABG PO2 112.1 mmHg (83.0-108.0); ABG TOTAL HEMOGLOBIN 15.4 G/dL (12.0-16.0); AaDO2 531.4 mmHg; COHb 1.7 % (0.5-1.5); MetHb 0.1 % (0.0-1.5); O2Hb 95.6 % (94.0-97.0); SITE, ABG Right Radial; VENT MODE, BG 15LPM NRB
--- NOTE | 2024-02-10 15:00 | NUR ---
CAPACITOR TESTER PT BECOMING SOMNOLENT, SPO2 ON 4L N/C 85%. PT PLACED ON BIPAP
[2024-02-10] MEDS ORDERED: NALOXONE HCL 0.4 MG/ML AMPUL IV PRN (15:30)
--- NOTE | 2024-02-10 15:30 | NUR ---
RT PER DR CABA PATIENT WAS PLACED ON BIPAP FOR INCREASED CO2 RETENTION. SETTINGS + ALARMS CHECKED + AUDIBLE. PATIENT AWAKENS TO COMMANDS. Addendum: 02/10/24 at 1555 by ALESAI MAURICIO RT Amended: Links added.
--- NOTE | 2024-02-10 15:30 | NUR ---
RT PER DR HELLER
[2024-02-10] MEDS: IPRATROPIUM NEB FS 0.5 MG/2.5 ML AMPUL.NEB NEB SCH (15:47)
[2024-02-10] MEDS: ALBUTEROL HALF STRENGTH 1.25 MG/3 ML VIAL.NEB NEB SCH ×2 (15:48→20:07)
[2024-02-10] MEDS: ENOXAPARIN SODIUM 40 MG/0.4 ML DISP.SYRIN SQ SCH (16:27)
[2024-02-10] MEDS: methylPREDNISolone SOD SUCC 125 MG/2ML VIAL IV SCH (16:27)
--- NOTE | 2024-02-10 18:00 | NUR ---
RN CLOSING NOTE: CONT ICU MANAGEMENT /ICU PROTOCOL PT LETHARGIC, AROUSABLE TO TACTILE STIMULI, BUT REMAINS SLEEPY (FENTANYL OD) ICU CRITERIA: REMAINS ON RESCUE BIPAP; CONT TO CORRECT ABNL ABG; METAB ACIDOSIS; ELEVATED CO2 O2 SAT > 88% ON FIO2 40% REMAINS HEMODYNAMICALLY STABLE; SBP>90 LACTIC ELEVATED, BUT TRENDING DOWN TO NORMAL REMAINS NPO; HOB ELEVATED; HIGH RISK FOR ASPIRATION; CONT CLOSE OBSERVATION AND MONITORING, FREQ ROUNDING PROVIDED PT SAFETY PRIORITIZED AT ALL TIMES, ALARMS SET CONT WITH POC
--- NOTE | 2024-02-10 20:09 | NUR ---
RT NOTE PT RECEIVED ON BIPAP WITH CURRENT SETTINGS S/T 20/5, RR 16, 50%. INCREASED FIO2 TO 70% DUE TO LOW SPO2. HHN TX GIVEN, NO ADVERSE REACTIONS NOTED. MASK SECURED WITH MEPILEX. BIPAP PLUGGED TO RED OUTLET. ALARMS ON AND AUDIBLE. WILL CONTINUE TO MONITOR CLOSELY. Addendum: 02/10/24 at 2011 by JEANNETTE CARROLL RT Amended: Links added.
--- NOTE | 2024-02-10 21:18 | NUR ---
PHOTONICS ENGINEER. INITIAL ASSESSMENT. RECEIVED THE PT REST IN BED. VERY LETHARGIC. BIPAP ON. DOES NOT FOLLOW COMMANDS. BIPAP SETTINGS 20/5, RATE IS 16, FIO2 70%. SAT 94%, HOB ELEVATED, IV RT AC 20G. SALINE LOCK. WILL CONTINUE TO MONITOR VITALS.
[2024-02-11] VITALS (34 sets, daily range): BP systolic 95–167; BP diastolic 58–124; TEMP 97.9–98.8; O2SAT 89–100
[2024-02-11 04:08] LABS: BASOPHILS % (AUTO) 0.1 % (0.0-2.0); HEMATOCRIT 40 % (33-45); HEMOGLOBIN 12.9 g/dL (11.5-14.8); LYMPHOCYTES # (AUTO) 0.9 K/uL (0.8-4.8); LYMPHOCYTES % (AUTO) 4.7 % (20.0-44.0); MEAN CORPUSCULAR HEMOGLOBIN 29 PG (26.0-33.0); MEAN CORPUSCULAR HGB CONC 33 g/dl (31.0-36.0); MEAN CORPUSCULAR VOLUME 90 fL (82-100); MONOCYTES # (AUTO) 0.8 K/uL (0.1-1.30); MONOCYTES % (AUTO) 4.3 % (2.0-12.0); NEUTROPHILS # (AUTO) 16.4 K/uL (1.8-8.9); NEUTROPHILS % (AUTO) 90.9 % (43.0-81.0); PLATELET COUNT (AUTO) 221 K/uL (150-450); RED BLOOD CELL COUNT(AUTO) 4.41 MIL/uL (4.0-5.2); RED CELL DISTRIBUTION WIDTH 14.6 % (11.5-15.0)
[2024-02-11 04:25] LABS: CALCIUM, SERUM 8.6 mg/dL (8.5-10.1); CREATININE 0.8 mg/dL (0.6-1.3); MAGNESIUM 2.1 mg/dL (1.8-2.4); PHOSPHORUS 4.4 mg/dL (2.5-4.9); POTASSIUM 4.2 mmol/L (3.5-5.1)
--- NOTE | 2024-02-11 06:20 | NUR ---
INSTALLER MOLDING AND TRIM. PT URINE NOT PASSED. BLADDER SCAN DONE. URINE 480 ML. NOTIFIED FUN HOUSE OPERATOR LANA. FC PLACED WITH OUT DIFFICULT. 3OO ML CONCENTRATED URINE DRAINED.
--- NOTE | 2024-02-11 06:24 | NUR ---
BELT WORKER. AM CARE GIVEN. REMAINING SAME BIPAP SETTINGS TOLERATEDW ELL. SAT 97%. NO ACUTE DISTRESS NOTED. ROLLER DIE CUTTING MACHINE OPERATOR SHOWING NSR. IV PIV TKO RUNNING. HOB ELEVATED, TURN AND REPOSITION Q2H. WILL CONTINUE TO MONITOR VITALS.
--- NOTE | 2024-02-11 07:32 | NUR ---
RN OPENING NOTES PT IS IN BED, CURRENTLY ASLEEP, ALTERED MENTAL STATUS. ON BIPAP, TOLERATING PRESCRIBED SETTING WELL. ON RISK MANAGEMENT SPECIALIST READING SR. IV ON THE RFA 18 G, TKO, PATENT AND INTACT. SAFETY MEASURES IN PLACE, BED LOCKED AND LOWEST POSITION, HOB ELEVATED, SIDE RAILS X 2, CALL LIGHT AND TABLE WITHIN REACH. WILL CONTINUE.
--- NOTE | 2024-02-11 12:15 | NUR ---
RN NOTES STARTED IV HL GAUGE 18 BASIL, ATTEMPTED X 1, FLUSHED WITH 10ML NORMAL SALINE PATENT. PATIENT TOLERATED PROCEDURE. ENDORSED TO BEDSIDE RN SHERMAN
--- NOTE | 2024-02-11 18:41 | NUR ---
RN CLOSING NOTES PT IS IN BED, RESTING, A/OX1, PT HAS MOMENTS OF CONFUSION. ON 2L OF O2 VIA NC, TOLERATING WELL. ON DOWNSTREAM BIOMANUFACTURING TECHNICIAN READING SR 81. IV ON THE RFA 18, SL, AND BASIL 18G, SL, PATENT AND INTACT. [place] CATHETER REMOVED, PT IS ABLE TO USE THE COMMODE WITH ASSISTANCE. PTS DIET IS ON CLEAR LIQUID DIET. ALL PTS MEDS ARE PROVIDED AND ALL PTS NEEDS ARE MET, PT AND LINENS WERE CLEANED AND CHANGED. SAFETY MEASURES IN PLACE: BED IS LOCKED AND LOWEST SETTING, HOB ELEVATED, SIDE RAILS X 3, CALL LIGHT AND TABLE WITHIN REACH. WILL ENDORSE POC.
--- NOTE | 2024-02-11 20:26 | NUR ---
[facility] Crisis team, informed her regarding patient situation, awaiting call back.
[2024-02-11] MEDS ORDERED: diphenhydrAMINE HCL 50 MG/ML VIAL IM PRN (20:30)
--- NOTE | 2024-02-11 20:47 | NUR ---
called the facility [place] where patient was residing, told them patient wanted to go back to the facility tonight but still waiting for the Crisis Team to assess the patient, per the facility she won't be able to answer/decide tonight because the phlebotomist supervisor/instructor is not around, and try calling in the morning when phlebotomist supervisor/instructor is around, loss prevention auditor Waqar made aware.
--- NOTE | 2024-02-11 21:44 | NUR ---
received a call back from [facility], stated she'll be here to assess the patient, and she'll be in the facility in 45 min, retirement plan counselor Waqar made aware. had shelter monitor Laurent to watch the patient for now. awaiting decision, will continue to monitor
--- NOTE | 2024-02-11 22:30 | NUR ---
[facility] Crisis Team at bedside, assessing the patient, per her, patient can sign AMA, informed her patient is not medically stable to leave AMA, informed her regarding [facility] that they cannot take the patient tonight. After assessing patient will be put on hold and can give medication to calm her down. Addendum: 02/12/24 at 0323 by NEELAM MONACO RN [facility] at bedside, assessing the patient, per her, patient can sign AMA, informed her patient is not medically stable to leave AMA, informed her regarding [facility] that they cannot take the patient tonight. After assessing patient,per her patient did not meet the criteria to put on hold but ok to give medication to calm her down.
--- NOTE | 2024-02-11 22:53 | NUR ---
@2000: patient is combative, pulled out IV, trying to get out of the room, yelling she wanted to go home, and go to this pharmacy to get her "shot", patient removed her monitor, and bp cuff, stated she's fine and she has the right to leave and call paramedics to pick her up, informed first helper Rene regarding situation, tried talking to the patient and calming her down, still patient is being combative, called [facility]addie monson , security came and assess situation, still patient has no improvement. paged RANULFO Coombs and put orders to calm down patient as PRN. vehicle monitor technician Laurent sat beside patient to watch patient for now.
[2024-02-11] MEDS: HALOPERIDOL LACTATE INJ 5 MG/ML VIAL IM ONE (23:20)
--- NOTE | 2024-02-11 23:20 | NUR ---
Administered Ativan 2mg/ml IM. Haldol Lactate Inj 5mg/ml as ordered, explained patient she needs to be on the monitor, patient refused and started to be agitated, waited patient to calm down and hooked patient back to monitor. will continue to monitor.
[2024-02-11] MEDS: LORAZEPAM INJ 2 MG/ML VIAL IM ONE (23:21)
--- NOTE | 2024-02-11 23:30 | NUR ---
PT IS CONFUSED , NON COMPLIANT AND REFUSING NOC BIPAP. RN MAI AND CHARGE NURSE AWARE.
[2024-02-12] VITALS (24 sets, daily range): BP systolic 99–167; BP diastolic 61–100; TEMP 97.8–98.6; O2SAT 92–100
[2024-02-12] MEDS: LORAZEPAM INJ 2 MG/ML VIAL ONE (00:08)
[2024-02-12] MEDS: HALOPERIDOL LACTATE INJ 5 MG/ML VIAL ONE (00:09)
[2024-02-12 04:06] LABS: HEMATOCRIT 36 % (33-45); HEMOGLOBIN 12.1 g/dL (11.5-14.8); LYMPHOCYTES # (AUTO) 0.8 K/uL (0.8-4.8); LYMPHOCYTES % (AUTO) 5.5 % (20.0-44.0); MEAN CORPUSCULAR HEMOGLOBIN 30 PG (26.0-33.0); MEAN CORPUSCULAR HGB CONC 34 g/dl (31.0-36.0); MEAN CORPUSCULAR VOLUME 89 fL (82-100); MONOCYTES # (AUTO) 0.9 K/uL (0.1-1.30); MONOCYTES % (AUTO) 6.2 % (2.0-12.0); NEUTROPHILS # (AUTO) 13.6 K/uL (1.8-8.9); NEUTROPHILS % (AUTO) 88.3 % (43.0-81.0); PLATELET COUNT (AUTO) 212 K/uL (150-450); RED BLOOD CELL COUNT(AUTO) 4.04 MIL/uL (4.0-5.2); RED CELL DISTRIBUTION WIDTH 14.4 % (11.5-15.0); WHITE BLOOD COUNT (AUTO) 15.3 K/uL (4.3-11.0)
[2024-02-12 04:41] LABS: CALCIUM, SERUM 8.7 mg/dL (8.5-10.1); CREATININE 0.6 mg/dL (0.6-1.3); MAGNESIUM 2.1 mg/dL (1.8-2.4); PHOSPHORUS 1.9 mg/dL (2.5-4.9)
--- NOTE | 2024-02-12 06:38 | NUR ---
RN CLOSING NOTES PATIENT IN BED AWAKE, AOX2 WITH EPISODES OF CONFUSION, STARTED PULLING HER IV LINE, REMOVED HER BP CUFF, AND OXYGEN, PATIENT SATING 92 % ON RA, SHE THEN STATED SHE DON'T FEEL GOOD, ADVISED HER SHE NEEDED THE OXYGEN TO FEEL BETTER, SHE COMPLIED, PATIENT NOW ON 94 % ON 2L, SR ON THE MONITOR, VS WNL, ROCK LOADER SAT WITH THE PATIENT D/T PATIENT TRYING TO GET OUT OF THE BED. PLAN OF CARE ONGOING, WILL ENDORSE TO ONCOMING NURSE FOR ALVIN.
--- NOTE | 2024-02-12 07:00 | NUR ---
RN NOTES RECEIVED PT ON BED , A/Ox1, CONFUSED , RESTING IN BED, DENIES ANY SUICIDAL THOUGHT , ON RA, O2 SAT WNL, REFUSED TO HAVE BP CUFF ON AND HAVE BP TAKEN , ON TELE SR HR IN 60'S, PT IS 1:1 CARE FOR SAFETY PRECAUTION , SAFETY MEASURES IN PLACE , CONTINUE TO MONITOR PT CLOSELY.
--- NOTE | 2024-02-12 12:00 | NUR ---
RN NOTES PT IN BED, CONFUSED, STATED THAT SHE WANTS TO GO HOME , O2 SAT WNL, ON RA . NO SOB NOTED. CONTINUE TO MONITOR
[2024-02-12] MEDS: Sodium Phosphate 15 MMOL in IV NS 0.9% 245 ML IV SCH (15:44)
--- NOTE | 2024-02-12 15:53 | NUR ---
recycling worker Consultation: recycling worker consultation requested for overdose. The patient was alert and oriented x3. Patient was calm and cooperative. Patient had a flat affect during the assessment. The patient stated prior to being at the hospital she does not remember what happened. Patient stated she resides at [facility] ([phone]) and has been residing there for 3 years. The patient stated she is fully ambulatory and that her source of income comes from her snf and SSI but patient stated she is unsure how she receives. Patient denied having any mental health illnesses. Patient denied any substance abuse, but patients labs indicate patient is positive for fentanyl and cannabinoids. Patient denied having any visual/auditory hallucinations. Patient denied any Suicidal/homicidal ideation. recycling worker spoke to HARJIT from [place] at the [facility] and she stated that once the patient is closer to a discharge date that they will have to evaluate if they are willing to take the patient back. HARJIT informed the rn social services that she spoke to HUONG Chong and that she will follow up with her once the patient is closer to being discharged. DC PLAN: recycling worker will follow up with CM in regards to patients DC plan. Substance Abuse resources provided included: [facility] Substance Abuse Self-Helpline ([facility]) ; [facility] [address] [facility]. [place] [id number] ; [facility] [address] [facility] [address] ; [facility]
--- NOTE | 2024-02-12 17:45 | NUR ---
RN NOTES PT TRANSFERRED TO ROOM 103 MS STATUS IN STABLE CONDITION, PT STATED HER SHIRT IS MISSING, NO SHIRT RECORDED IN BELONGINGS LIST WHEN PT ADMITTED , REPORT GIVEN TO GASTON RN FOR CONTINUITY OF CARE .
--- NOTE | 2024-02-12 18:00 | NUR ---
RN NOTE Received report from Vanessa at bedside. Pt arrived via wheelchair. Pt currently on room air and tolerating well. No respiratory distress noted. No SOB. Pt is A/O x3 and able to make needs known. Pt is ambulatory to restroom. IV access to right hand #20g infusing sodium phosphate @63.3ml/hr and Zosyn @25ml/hr. Safety measures in place, bed in low and locked position. Call light in reach. Plan of care ongoing.
--- NOTE | 2024-02-12 19:31 | NUR ---
MS RN OPENING NOTE RECEIVED PATIENT IN BED, ASLEEP, EASY TO AROUSE, DENIES PAIN AT THIS TIME. ALERT/ORIENTED X3, WITH PERIODS OF FORGETFULNESS NOTED. ABLE TO MAKE NEEDS KNOWN. STABLE ON ROOM AIR, WELL TOLERATED, BREATHING EVENLY AND UNLABORED, SPO2 97%. WITH IV ACCESS ON RIGHT HAND #20G, RUNNING SODIUM PHOSPHATE @ 63.33CC/HR AND ZOSYN 25CC/HR ONGOING. NO S/S OF INFILTRATION OBSERVED ON IV SITE. ABLE TO GO BRPS WITHOUT DIFFICULTY, ASSISTED NEEDED. SAFETY MEASURES IMPLEMENTED, CALL LIGHT WITHIN EASY REACH. CONTINUED ONGOING PLAN OF CARE.
--- NOTE | 2024-02-12 23:33 | NUR ---
PT REFUSED NOC BIPAP AND SHE DOESN'T WANT THE BIPAP MACHINE INSIDE HER ROOM. PT IS NON COMPLIANT . RN REBEKAH AND CHARGE NURSE TARIK DOMINGUEZ.
[2024-02-13] VITALS (9 sets, daily range): BP systolic 144–181; BP diastolic 86–99; TEMP 97.6–97.8; O2SAT 98–100
--- NOTE | 2024-02-13 06:58 | NUR ---
MS RN CLOSING NOTE PATIENT IN BED, ASLEEP, EASY TO AROUSE, DENIES PAIN AT THIS TIME. SLEPT WELL DURING THE SHIFT. STILL WITH PERIODS OF FORGETFULNESS NOTED. ABLE TO MAKE NEEDS KNOWN. STABLE ON ROOM AIR, WELL TOLERATED, BREATHING EVENLY AND UNLABORED, SPO2 98%. WITH IV ACCESS ON RIGHT HAND #20G, SL. NO S/S OF INFILTRATION OBSERVED ON IV SITE. ALL DUE MEDS GIVEN. ABLE TO GO BRPS WITHOUT DIFFICULTY, ASSISTED NEEDED. SAFETY MEASURES IMPLEMENTED, CALL LIGHT WITHIN EASY REACH. WILL ENDORSE TO ONCOMING RN FOR CONTINUITY OF CARE.
[2024-02-13 07:16] LABS: HEMATOCRIT 40 % (33-45); HEMOGLOBIN 13.3 g/dL (11.5-14.8); LYMPHOCYTES # (AUTO) 1.4 K/uL (0.8-4.8); MEAN CORPUSCULAR HEMOGLOBIN 29 PG (26.0-33.0); MEAN CORPUSCULAR HGB CONC 33 g/dl (31.0-36.0); MEAN CORPUSCULAR VOLUME 88 fL (82-100); MONOCYTES # (AUTO) 1.2 K/uL (0.1-1.30); MONOCYTES % (AUTO) 9.2 % (2.0-12.0); NEUTROPHILS # (AUTO) 10.1 K/uL (1.8-8.9); NEUTROPHILS % (AUTO) 79.8 % (43.0-81.0); PLATELET COUNT (AUTO) 244 K/uL (150-450); RED BLOOD CELL COUNT(AUTO) 4.55 MIL/uL (4.0-5.2); RED CELL DISTRIBUTION WIDTH 14.3 % (11.5-15.0); WHITE BLOOD COUNT (AUTO) 12.6 K/uL (4.3-11.0)
--- NOTE | 2024-02-13 07:40 | NUR ---
DIGITAL PRODUCTION MANAGER NOTE OPENING Patient received at 0700 in bed with no s/s of distress noted. She is currently resting in bed on room air. She has a Right hand 20g SL intact. All of her current needs met no further concerns noted at this time. No further concerns noted at this time.
[2024-02-13 07:51] LABS: CALCIUM, SERUM 8.9 mg/dL (8.5-10.1); CREATININE 0.6 mg/dL (0.6-1.3); MAGNESIUM 2.1 mg/dL (1.8-2.4); PHOSPHORUS 2.7 mg/dL (2.5-4.9); POTASSIUM 3.8 mmol/L (3.5-5.1)
[2024-02-13] MEDS: hydrALAZINE HCL IV 20 MG VIAL IV PRN (09:53)
[2024-02-13] MEDS ORDERED: PRED20TA PO (13:52)
[2024-02-13] MEDS ORDERED: AMOX-421 PO (13:52)
--- NOTE | 2024-02-13 16:29 | NUR ---
GARAGE LABORER NOTE BP NOTE 181/99 HR 69 PRN for SBP greater than 170 given.
--- NOTE | 2024-02-13 16:52 | NUR ---
[employer] NOTE Patient picked up for transport at 1652 BP was noted at 161.98 HR 69 RR 17 temp 97.6. Has all of her needs met all discharge paperwork given to her. Education done, patient understands to follow up with PCP. No further concerns noted at this time.
== END 2024-02-13 16:50 | DRG 917 ==
LOC: ER 22:34 → TELE 02-10 05:43 → ICU 02-10 14:36 → MEDSG1 02-12 17:53
PROVIDERS: ADMIT Nurse Practitioner Acute Care; ATTEND Nurse Practitioner Acute Care
PROC: 5A09357 Assistance with Respiratory Ventilation, Less than 24 Consecutive Hours, Continuous Positive Airway Pressure (ICD-10-PCS; principal; 2024-02-10)
DX: T40.411A Poisoning by fentanyl or fentanyl analogs, accidental (unintentional), initial encounter (principal); I50.31 Acute diastolic (congestive) heart failure; J96.21 Acute and chronic respiratory failure with hypoxia; J96.22 Acute and chronic respiratory failure with hypercapnia; J69.0 Pneumonitis due to inhalation of food and vomit; J15.9 Unspecified bacterial pneumonia; F20.0 Paranoid schizophrenia; E87.0 Hyperosmolality and hypernatremia; J98.11 Atelectasis; E87.29 Other acidosis; G40.909 Epilepsy, unspecified, not intractable, without status epilepticus; I10 Essential (primary) hypertension; F41.9 Anxiety disorder, unspecified; E86.0 Dehydration; F32.A Depression, unspecified; Z79.899 Other long term (current) drug therapy; Y92.099 Unspecified place in other non-institutional residence as the place of occurrence of the external cause; Z79.82 Long term (current) use of aspirin; D72.829 Elevated white blood cell count, unspecified; J44.9 Chronic obstructive pulmonary disease, unspecified; I11.0 Hypertensive heart disease with heart failure
CPT/HCPCS: 36415; 36600; 71045-TC; 80048-TC; 80053-TC; 80076-TC; 81001; 82248-TC; 82803-TC; 83605-TC; 83735-TC; 83880; 84100-TC; 84484-TC; 85025-TC; 87040-TC; 94799-TC; 98960; A4223; A9563; G0378; G0480; J0360; J1630; J1650; J2060; J2310; J2543; J2919; J7030; J7050; J7060